=== PATIENT | female | born 1950 | race Caucasian/White ===

== ENCOUNTER 2018-07-12 15:15 | Emergency (ER) | payer MEDICARE, OTHER ==
--- NOTE | 2018-07-12 16:10 | UC ---
Ear Complaint HPI - HPI Summary HPI Summary: Pt c/o sudden onset of right ear pain. denies URI symptoms, fever, hearing loss and does not wear hearing aids. - History of Current Complaint Chief Complaint: UCEar Stated Complaint: EAR PAIN Time Seen by Provider: 07/12/18 15:37 Hx Obtained From: Patient ?: No Onset/Duration: Sudden Onset, Lasting Days, Still Present Severity Initially: Mild Severity Currently: Mild Pain Intensity: 3 Alleviating Factors: Nothing - Allergies/Home Medications Allergies/Adverse Reactions: Allergies Allergy/AdvReac Type Severity Reaction Status Date / Time amitriptyline [From Elavil] Allergy See Comment Verified 07/12/18 15:59 ciprofloxacin [From Cipro] Allergy Swelling Verified 07/12/18 15:56 hydromorphone [From Dilaudid] Allergy See Comment Verified 07/12/18 15:59 metformin Allergy See Comment Verified 07/12/18 15:59 NSAIDS (Non-Steroidal Allergy GI Upset Verified 07/12/18 15:53 Anti-Inflamma Penicillins Allergy Anaphylatic Verified 07/12/18 15:50 Shock Home Medications: Home Medications Ascorbic Acid TAB* [Vitamin C TAB*] 500 mg PO DAILY 07/12/18 [History Confirmed 07/12/18] Bumetanide 1 mg PO DAILY 07/12/18 [History Confirmed 07/12/18] Cholecalciferol TAB* [Vitamin D TAB*] 1,000 unit PO DAILY 07/12/18 [History Confirmed 07/12/18] Colchicine* [Colcrys*] 0.6 mg PO DAILY 07/12/18 [History Confirmed 07/12/18] Cyclobenzaprine TAB* [Flexeril 10 MG TAB*] 10 mg PO TID PRN 07/12/18 [History Confirmed 07/12/18] Gabapentin [Neurontin] 300 mg PO TID 07/12/18 [History Confirmed 07/12/18] Insulin Aspart Prot/Insuln Asp [Novolog Mix 70/30 Prefill] 1 inj SC DAILY [History Confirmed 07/12/18] Insulin Glargine,Hum.rec.anlog [Lantus] 100 unit SQ DAILY 07/12/18 [History Confirmed 07/12/18] L.acidoph,Paracasei, B.lactis [Probiotic] 1 each PO DAILY 07/12/18 [History Confirmed 07/12/18] Magnesium Oxide TAB* [MagOx 400 TAB*] 400 mg PO DAILY 07/12/18 [History Confirmed 07/12/18] Multivitamin [Multiple Vitamins] 1 tab PO DAILY 07/12/18 [History Confirmed 07/19] Spironolactone TAB* [Aldactone TAB*] 25 mg PO DAILY 07/12/18 [History Confirmed 07/12/18] diazePAM [Diazepam] 5 mg PO SEE INSTRUCTIONS PRN 07/12/18 [History Confirmed 07/19] oxyCODONE TAB* [Roxycodone TAB 5 mg*] 5 mg PO Q4H 07/12/18 [History Confirmed ] PMH/Surg Hx/FS Hx/Imm Hx Endocrine History: Diabetes, Dyslipidemia Cardiovascular History: Cardiac Disease - Surgical History Surgical History: Yes Surgery Procedure, Year, and Place: tonsilectomy, hysterectomy, gallbladder - Family History Known Family History: Positive: Cardiac Disease - Social History Occupation: Retired Lives: With Family Alcohol Use: None Substance Use Type: None Smoking Status (MU): Never Smoked Tobacco Have You Smoked in the Last Year: No Review of Systems All Other Systems Reviewed And Are Negative: Yes Constitutional: Positive: Negative Skin: Positive: Negative Eyes: Positive: Negative ENT: Positive: Ear Ache - right Respiratory: Positive: Negative Cardiovascular: Positive: Negative Gastrointestinal: Positive: Negative Genitourinary: Positive: Negative Motor: Positive: Negative Neurovascular: Positive: Negative Musculoskeletal: Positive: Negative Neurological: Positive: Negative Psychological: Positive: Negative Is Patient Immunocompromised?: No Physical Exam Triage Information Reviewed: Yes Appearance: Well-Appearing Vital Signs: Initial Vital Signs Temp 98 F 07/12/18 15:32 Pulse 91 07/12/18 15:32 Resp 18 07/12/18 15:32 Pulse Ox 98 07/12/18 15:32 Vital Signs Reviewed: Yes Eye Exam: Normal ENT: Positive: Other - small amount of fresh dried blood in right ear canal. denies known injury does use ear "brush" to put tea tree oil in ears daily. Dental Exam: Normal Neck exam: Normal Respiratory Exam: Normal Respiratory: Positive: No respiratory distress Musculoskeletal Exam: Normal Neurological Exam: Normal Psychological Exam: Normal Skin Exam: Normal Ear Complaint Course/Dx - Differential Dx/Diagnosis Differential Diagnosis/HQI/PQRI: Otitis Media, Other Provider Diagnoses: right ear abrasion Discharge - Sign-Out/Discharge Documenting (check all that apply): Patient Departure All imaging exams completed and their final reports reviewed: No Studies - Discharge Plan Condition: Stable Disposition: HOME Patient Education Materials: Earache (ED), Ear Abrasion (ED) Referrals: Jimmy Gamez MD [Primary Care Provider] - If Needed - Billing Disposition and Condition Condition: STABLE Disposition: Home
== END 2018-07-12 16:08 | disposition home or self-care (01) ==
LOC: UCCORT 15:15
DX: S00.411A Abrasion of right ear, initial encounter (principal); X58.XXXA Exposure to other specified factors, initial encounter; Y93.89 Activity, other specified; Y92.009 Unspecified place in unspecified non-institutional (private) residence as the place of occurrence of the external cause; Z88.1 Allergy status to other antibiotic agents; Z88.0 Allergy status to penicillin; Z88.8 Allergy status to other drugs, medicaments and biological substances; E11.9 Type 2 diabetes mellitus without complications; Z79.4 Long term (current) use of insulin; E78.5 Hyperlipidemia, unspecified; I51.9 Heart disease, unspecified
CPT/HCPCS: 99212; G0463